=== PATIENT | female | born 1965 | race Caucasian/White ===

== ENCOUNTER 2017-01-22 11:31 | Emergency (ER) | payer SELFPAY ==
[~2017-01-22] VITALS: Ht 160 cm; Wt 64.0 kg
[2017-01-22 11:36] VITALS: Ht 160 cm; Wt 64.0 kg
[2017-01-22] MEDS ORDERED: SOD CHLORIDE 0.9% 1,000 ML IV STA (12:12)
[2017-01-22 12:23] LABS: ADD SCAN DIFF NO
[2017-01-22 12:27] LABS: BASOPHILS % 0.3 % (0.0-2.0); EOSINOPHILS # 0.1 10^3/ul (0.0-0.5); EOSINOPHILS % 0.5 % (0.0-7.0); HEMATOCRIT 41.8 % (37.0-47.0); HEMOGLOBIN 13.6 g/dl (12.0-16.0); LYMPHOCYTES # 2.5 10^3/ul (0.8-2.9); LYMPHOCYTES % 24.9 % (15.0-51.0); MEAN CORPUSCULAR HEMOGLOBIN 27.1 pg (29.0-33.0); MEAN CORPUSCULAR HGB CONC 32.5 g/dl (32.0-37.0); MEAN CORPUSCULAR VOLUME 83.4 fl (82.0-101.0); MEAN PLATELET VOLUME 10.4 fl (7.4-10.4); MONOCYTE # 0.6 10^3/ul (0.3-0.9); MONOCYTES % 6.1 % (0.0-11.0); NEUTROPHIL # 6.7 10^3/ul (1.6-7.5); NEUTROPHILS % 67.9 % (39.0-77.0); PLATELET COUNT 410 10^3/UL (140-415); RED BLOOD COUNT 5.01 10^6/ul (4.20-5.40); RED CELL DISTRIBUTION WIDTH 13.9 % (11.5-14.5); WHITE BLOOD COUNT 9.9 10^3/ul (4.8-10.8)
[2017-01-22 13:03] LABS: ANION GAP 15 (8-16); BLOOD UREA NITROGEN 12 mg/dl (7-20); CALCIUM 10.3 mg/dl (8.4-10.2); CARBON DIOXIDE 26 mmol/L (21-31); CHLORIDE 102 mmol/L (97-110); CREATININE 0.67 mg/dl (0.44-1.00); GLUCOSE 90 mg/dl (70-220); POTASSIUM 4.6 mmol/L (3.5-5.1); SODIUM 138 mmol/L (135-144)
--- NOTE | 2017-01-22 13:03 | RADRPT ---
PROCEDURE: CT Brain without contrast. CLINICAL INDICATION: Headache. Syncope. TECHNIQUE: A CT of the brain without contrast was performed utilizing axial sections from the skul l base through the vertex. The patient was scanned without intravenous contrast enhancement. Sagitta l and coronal reformatted images were obtained using the data from the axial images. Total exam DLP is 630.20 mGy-cm. CTDIvol is 44.03 mGy. One or more of the following dose reduction techniques we re used: Automated exposure control, adjustment of the mA and/or kV according to patient size, use o f iterative reconstruction technique. COMPARISON: None available FINDINGS: There is normal jaimes-white matter differentiation. There is mild enlargement of the ventricles and subarachnoid spaces consistent with atrophy. There is asymmetric enlargement of the right lateral ventricle, a normal variant. There is no intracranial hemorrhage or space-occupying lesion. There is no skull fracture or lytic lesion. IMPRESSION: 1. Mild atrophy. 2. Asymmetric enlargement of the right lateral ventricle, a normal variant. 3. No intracranial hemorrhage. 4. Otherwise normal noncontrast CT scan of the brain. RPTAT: QQ .Chin Kumar MD, MD Date Time Electronically viewed and signed by .Chin Kumar MD, on 01/22/2017 13:03 .R/
[2017-01-22 13:26] LABS: TROPONIN-I < 0.012 ng/ml (0.00-0.12)
[2017-01-22 13:51] VITALS: BP 118/71; PULSE 64; RESP 16
--- NOTE | 2017-01-22 14:53 | ERD ---
ER Documentation Chief Complaint Date/Time DATE: 01/22/17 TIME: 14:51 Chief Complaint Pt fainted yesterday and today, mouth twitching/numb , c/o CP yesterday. HPI Patient is a 51-year-old female with no medical problems who presents with syncope. She said that she passed out yesterday and today. She had shortness of breath when she passed out. She feels like her lip is twitching. She feels diffusely weak but no one-sided weakness. She denies any room spinning. She has had no treatment as of yet. She does not currently have a primary doctor. Upon review of old medical records this is the patient's first visit to the emergency department. ROS All systems reviewed and are negative except as per history of present illness. Allergies Allergies: Coded Allergies: No Known Allergy (Unverified , 01/22/17) PMhx/Soc Medical and Surgical Hx: pt denies Medical Hx, pt denies Surgical Hx History of Surgery: No Hx Alcohol Use: No Hx Substance Use: No Hx Tobacco Use: No Smoking Status: Never smoker FmHx Family History: No diabetes Physical Exam Vitals Vital Signs Date Time Temp Pulse Resp B/P Pulse Ox O2 Delivery O2 Flow Rate FiO2 01/22/17 13:51 64 16 118/71 99 01/22/17 11:36 98.6 74 16 142/66 99 Physical Exam Const: No acute distress Head: Atraumatic Eyes: Normal Conjunctiva ENT: Normal External Ears, Nose and Mouth. Neck: Full range of motion..~ No meningismus. Resp: Clear to auscultation bilaterally Cardio: Regular rate and rhythm, no murmurs Abd: Soft, non tender, non distended. Normal bowel sounds Skin: No petechiae or rashes Back: No midline or flank tenderness Ext: No cyanosis, or edema Neur: Awake and alert, cranial nerves II through XII intact, strength is 5 out of 5 in all 4 extremities Psych: Normal Mood and Affect Result Diagram: 01/22/17 1215 01/22/17 1215 Results 24 hrs Laboratory Tests Test 01/22/17 12:15 White Blood Count 9.910^3/ul Red Blood Count 5.0110^6/ul Hemoglobin 13.6g/dl Hematocrit 41.8% Mean Corpuscular Volume 83.4fl Mean Corpuscular Hemoglobin 27.1pg Mean Corpuscular Hemoglobin Concent 32.5g/dl Red Cell Distribution Width 13.9% Platelet Count 90828^3/UL Mean Platelet Volume 10.4fl Neutrophils % 67.9% Lymphocytes % 24.9% Monocytes % 6.1% Eosinophils % 0.5% Basophils % 0.3% Nucleated Red Blood Cells % 0.0/100WBC Neutrophils # 6.710^3/ul Lymphocytes # 2.510^3/ul Monocytes # 0.610^3/ul Eosinophils # 0.110^3/ul Basophils # 0.010^3/ul Nucleated Red Blood Cells # 0.010^3/ul Sodium Level 138mmol/L Potassium Level 4.6mmol/L Chloride Level 102mmol/L Carbon Dioxide Level 26mmol/L Anion Gap 15 Blood Urea Nitrogen 12mg/dl Creatinine 0.67mg/dl Glucose Level 90mg/dl Calcium Level 10.3mg/dl Ionized Calcium (Measured) 1.3mmol/L Troponin I < 0.012ng/ml Current Medications Medications (Trade) Dose Ordered Sig/Ahmet Route PRN Reason Start Time Stop Time Status Last Admin Dose Admin Sodium Chloride (NS) 1,000 ml @ 1,000 mls/hr Q1H STAT IV 01/22/17 12:12 01/22/17 13:11 DC Procedures/MDM EKG read by me: Rate/Rhythm: Regular rate and rhythm at a normal rate Intervals: Normal Impression: No evidence of ischemia or arrhythmia CT brain negative per radiology. Patient is a 51-year-old female with no medical problems who presents with syncope. Her laboratory studies are normal. EKG is normal. CT scan of the brain shows no sign of intracranial mass or hemorrhage. At this point I doubt acute cardiac arrhythmia such as ventricular fibrillation or ventricular tachycardia. The patient has no abnormal electrolyte abnormality. The patient will need to follow-up with the local clinics within 24-48 hours and could return if symptoms worsen. At this point I believe outpatient management is appropriate. The patient was given 1 L normal saline for fluid resuscitation. She feels better and ambulated out of the emergency department without difficulty. Departure Diagnosis: Primary Impression: Syncope Syncope type: unspecified Qualified Code: R55 - Syncope, unspecified syncope type Condition: Fair Patient Instructions: Syncope, Unk Cause Ref[facility]: [facility] Usted se anders hecho un examen mdico de control que le indica que no est en reid condicin que requiera tratamiento urgente en el Departamento de Emergencia. Un estudio ms profundo y el tratamiento de avendaño condicin pueden esperar sin ningn riesgo hasta que usted sea atendida/o en el consultorio de avendaño mdico o reid cl huyen. Es responsabilidad suya arreglar reid jonas para el seguimiento del franklin. MANEJO DE CONDICIONES NO URGENTES EN EL FUTURO 1) Si usted tiene un mdico de atencin primaria: Usted debera llamar a avendaño mdico de atencin primaria antes de venir al departamento de emergencia. Despus de las horas de consultorio, avendaño doctor o avendaño asociado/a est disponible por telfono. El mdico o enfermero de sofie en el servicio telefnico puede asesorarle por duane medio para atender el problema, o franklin contrario se puede programar reid jonas. 2) Si usted no tiene un mdico de atencin primaria: Llame al mdico o clnica de referencia que aparece abajo alex las horas de consultorio para hacer reid jonas para que le vean. CLINICAS: [facility] [phone] [facility] [phone] [facility] [phone] [facility]. [facility] [phone] [address] [facility] [address] [place] [id number] [phone] [facility]. [phone] [address] Additional Instructions: Llame al doctor MAANA y dominic reid JONAS PARA DENTRO DE 1-2 WEN.Dgale a la secretaria que nosotros le instruimos hacer esta jonas.Avise o llame si avendaño condicin se empeora antes de la jonas. Regresa aqui si peor o no mejor. ASHLY GONZALEZ MD Jan 22, 2017 14:53
== END 2017-01-22 14:33 | disposition home or self-care (01) ==
LOC: E/R 11:31
DX: R55 Syncope and collapse (principal)
CPT/HCPCS: 36415; 70450; 80048; 82330; 84484; 85025; 93005; 99285; J7030